=== PATIENT | male | born 1980 | race Caucasian/White ===

== ENCOUNTER 2017-05-20 21:25 | Emergency (ER) | payer OTHER ==
[~2017-05-20] VITALS: Ht 177.8 cm; Wt 95.1 kg
[~2017-05-20 21:25] MED LIST: NOHOMEMEDS
[2017-05-20] MEDS ORDERED: MOTRIN800 MG PO (23:28)
[2017-05-20 23:45] VITALS: BP 127/88
== END 2017-05-20 23:52 | disposition home or self-care (01) ==
LOC: EME 21:25 → RME 21:25
DX: S90.01XA Contusion of right ankle, initial encounter (principal); W21.07XA Struck by softball, initial encounter; Y93.64 Activity, baseball
CPT/HCPCS: 73590; 99281; 99283

== ENCOUNTER 2018-03-19 22:02 | Emergency (ER) | payer OTHER ==
[~2018-03-19] VITALS: Ht 175.3 cm; Wt 94.5 kg
[~2018-03-19 22:02] MED LIST changes: +MOTRIN800 MG PO
[2018-03-19 22:09] VITALS: BP 127/81
== END 2018-03-19 23:40 | disposition home or self-care (01) ==
LOC: EME 22:02
DX: S93.402A Sprain of unspecified ligament of left ankle, initial encounter (principal); X50.9XXA Other and unspecified overexertion or strenuous movements or postures, initial encounter; Y93.64 Activity, baseball
CPT/HCPCS: 73610; 99281; 99284